=== PATIENT | male | born 1955 | race Two or more races ===

== ENCOUNTER 2017-11-12 10:00 | Emergency (ER) | payer MEDICAID ==
[~2017-11-12] VITALS: Ht 157.5 cm; Wt 74.8 kg
--- NOTE | 2017-11-12 10:00 | NUR ---
[id number] FROM WORK FOR RT FA LACERATION S/P SLIPPED AND FELL DOWN FROM THE LADDER AND SCRAPED HIS FOREARM
[2017-11-12] MEDS ORDERED: TDAP [DIPH/PERTUSSIS/TET] 0.5 ML VIAL IM ONE ×2 (10:27→10:30)
[2017-11-12] MEDS ORDERED: LIDOCAINE 1% INJ 50 ML MDV IJ ONE (10:30)
[2017-11-12] MEDS ORDERED: CEFAZOLIN 1 GM in IV D5W 50 ML IV ONE (12:30)
--- NOTE | 2017-11-12 12:50 | NUR ---
LFA #18 IV ACCESS. CALLED PHARMACY FOR ANCEF
--- NOTE | 2017-11-12 13:32 | NUR ---
Patient discharged to home in stable condition. Written and verbal after care instructions given. Patient verbalizes understanding of instruction.
--- NOTE | 2017-11-12 13:32 | NUR ---
IV removed. Catheter intact and site benign. Pressure and 4x4 applied to site. No bleeding noted.
[2017-11-12 13:42] VITALS: BP 134/78
== END 2017-11-12 13:43 | disposition home or self-care (01) ==
LOC: ER 10:03
DX: S41.111A Laceration without foreign body of right upper arm, initial encounter (principal); W01.10XA Fall on same level from slipping, tripping and stumbling with subsequent striking against unspecified object, initial encounter; Y93.89 Activity, other specified; Y92.89 Other specified places as the place of occurrence of the external cause; Y99.0 Civilian activity done for income or pay; S30.810A Abrasion of lower back and pelvis, initial encounter; S50.312A Abrasion of left elbow, initial encounter
CPT/HCPCS: 13121; 73090; 90471; 90715; 96365; 99285; A4606; A6402; A6403; J0690; J7060; Z7610